=== PATIENT | male | born 1980 | race Caucasian/White ===

== ENCOUNTER 2020-06-19 21:37 | Emergency (ER) | payer BC ==
[~2020-06-19] VITALS: Ht 170.2 cm; Wt 96.0 kg
[2020-06-19] MEDS ORDERED: IBUPROFEN 600MG TABLET PO ONE (23:00)
[2020-06-20] MEDS ORDERED: IBUP-2029 MT (00:50)
[2020-06-20 01:14] VITALS: BP 148/89
== END 2020-06-20 01:16 | disposition home or self-care (01) ==
LOC: ER 21:37
DX: S16.1XXA Strain of muscle, fascia and tendon at neck level, initial encounter (principal); S06.9X9A Unspecified intracranial injury with loss of consciousness of unspecified duration, initial encounter; S39.012A Strain of muscle, fascia and tendon of lower back, initial encounter; R03.0 Elevated blood-pressure reading, without diagnosis of hypertension; R00.0 Tachycardia, unspecified; V49.59XA Passenger injured in collision with other motor vehicles in traffic accident, initial encounter; Y93.89 Activity, other specified; Y92.488 Other paved roadways as the place of occurrence of the external cause
CPT/HCPCS: 72040; 72100; 93005; 99284